=== PATIENT | male | born 1950 | race Hispanic/Latino ===

== ENCOUNTER 2019-09-10 21:48 | Inpatient (IN) | payer BC, OTHER ==
[~2019-09-10] VITALS: Ht 182.9 cm; Wt 125.7 kg
[2019-09-10] MEDS ORDERED: LEVOFLOXACIN 500 MG/D5W 100 ML 0 ML ONE (22:29)
[2019-09-10] MEDS ORDERED: LEVOFLOXACIN 750 MG/D5W 150 ML 150 ML ONE (22:30)
[2019-09-10 22:42] LABS: BASOPHILS % (AUTO) 0.1 % (0.0-5.0); EOSINOPHILS % (AUTO) 0.1 % (0.0-8.0); HEMATOCRIT 46.1 % (42-54); LYMPHOCYTES % (AUTO) 19.4 % (21.0-51.0); MEAN CORPUSCULAR HEMOGLOBIN 28.8 pg (27.0-33.0); MEAN CORPUSCULAR HGB CONC 34.1 g/dL (32.0-36.0); MEAN CORPUSCULAR VOLUME 84.6 fL (79-99); MONOCYTES % (AUTO) 7.3 % (3.0-13.0); NEUTROPHILS % (AUTO) 72.8 % (40.0-77.0); PLATELET COUNT (AUTO) 192 K/uL (130-400); RED BLOOD CELL COUNT(AUTO) 5.45 MIL/uL (4.50-6.20); RED CELL DISTRIBUTION WIDTH 12.9 % (11.0-15.5); WHITE BLOOD COUNT (AUTO) 7.4 K/uL (4.8-10.8)
[2019-09-10 22:50] LABS: POTASSIUM 4.1 mmol/L (3.5-5.1)
[2019-09-10 22:57] LABS: ALBUMIN 3.1 g/dL (3.5-5.0); BILIRUBIN,TOTAL 0.4 mg/dL (0.2-1.0); TOTAL PROTEIN, SERUM 7.5 g/dL (6.0-8.3)
[2019-09-11] MEDS ORDERED: CEFTRIAXONE SODIUM 1 GM ONE (00:34)
[2019-09-11] MEDS ORDERED: AZITHROMYCIN 250 MG TABLET PO ONE ×2 (00:34→00:36)
[2019-09-11 02:55] VITALS: BP 126/63
[2019-09-11] MEDS ORDERED: METF-444 PO (03:16)
[2019-09-11] MEDS ORDERED: PANT40TA54 PO (03:16)
[2019-09-11] MEDS ORDERED: HYDR25TA PO (03:16)
[2019-09-11] MEDS ORDERED: LISI40TA4 PO (03:16)
[2019-09-11] MEDS ORDERED: GLIM1TAB18 PO (03:16)
[2019-09-11] MEDS ORDERED: ATOR40TA69 PO (03:16)
[2019-09-11] MEDS ORDERED: TAMS-1 PO (03:16)
[2019-09-11] MEDS ORDERED: CLON0.1T PO (03:16)
--- NOTE | 2019-09-11 03:19 | NUR ---
ADMIT PT ADMITTED TO ROOM 304, AAOX3. CLAIMS OF COUGH AND SOB. ADMISSION CARE DONE. ADMISSION DATA BASE COMPLETED. PLACED ON O2 AT 2LPM VIA NC. ORIENTED TO ROOM AND UNIT. IN FOR MORE CARE AND MANAGEMENT. Addendum: 09/11/19 at 0359 by CHUY PEREZ RN RN Amended: Links added.
[2019-09-11 03:51] LABS: APPEARANCE,URINE Clear (CLEAR); BILIRUBIN,URINE Negative (NEGATIVE); COLOR,URINE Yellow (YELLOW); GLUCOSE, URINE (UA) Negative (NEGATIVE); KETONES,URINE Negative (NEGATIVE); LEUKOCYTE ESTERASE ,URINE Negative (NEGATIVE); NITRATE,URINE Negative (NEGATIVE); OCCULT BLOOD,URINE Moderate (NEGATIVE); PROTEIN,URINE POS 1+ mg/dL (NEGATIVE)
[2019-09-11 03:59] LABS: BACTERIA,URINE Few /HPF (None Seen); MUCUS,URINE Rare LPF (None Seen); RBC,URINE 0-1 /HPF (0-1); SQUAMOUS EPITHELIAL CELL,UR 0-2 /HPF (0-2)
[2019-09-11] MEDS ORDERED: ACETAMINOPHEN 325 MG TAB PO PRN (04:15)
[2019-09-11] MEDS: SODIUM CHLORIDE 0.9% 1000ML 1,000 ML IV SCH (04:15)
[2019-09-11] MEDS ORDERED: ONDANSETRON HCL 4 MG/2 ML VIAL IVP PRN ×2 (04:15→15:15)
--- NOTE | 2019-09-11 06:26 | NUR ---
ROUNDS PT RESTING WELL, FAIRLY ASLEEP. NO DISTRESS NOTED. NO DISTRESS NOTED. KEPT UNDISTURBED FOR NOW. FOR MORE CARE.
[2019-09-11 07:09] VITALS: BP 118/61
[2019-09-11] MEDS: CLONIDINE HCL 0.1 MG TABLET PO SCH (08:48)
[2019-09-11] MEDS: METFORMIN HCL 500 MG TABLET PO SCH ×2 (08:48→17:02)
[2019-09-11] MEDS: PANTOPRAZOLE SODIUM 40 MG TABLET.DR PO SCH (08:48)
[2019-09-11] MEDS: TAMSULOSIN HCL 0.4 MG CAP.ER.24H PO SCH (08:48)
[2019-09-11] MEDS: HYDROCHLOROTHIAZIDE 25 MG TABLET PO SCH (08:49)
[2019-09-11] MEDS: GLIMEPIRIDE 2 MG TABLET PO SCH (08:49)
[2019-09-11] MEDS: LISINOPRIL 40 MG TABLET PO SCH (08:49)
[2019-09-11 10:31] VITALS: BP 101/60
--- NOTE | 2019-09-11 13:46 | NUR ---
RD NOTIFICATION Pt admitted with Positive COVID-19 infection. Pt with 75gm CCD in place. No report of GI distress, Pt however with decreased Po intake. Obesity Class II. BG 210. Recommend modify diet order to 60gm CCD Recommend 60mL ProMod QD Recommend Glucerna BID RD to continue to monitor. Please notify as additional nutrition concerns arise. Thank you.
[2019-09-11] MEDS ORDERED: HYDRALAZINE HCL 20 MG/ML VIAL IV PRN (15:15)
[2019-09-11] MEDS ORDERED: LOPERAMIDE HCL 2 MG CAP PO PRN (15:15)
[2019-09-11] MEDS ORDERED: ZOLPIDEM TARTRATE 5 MG TAB PO PRN (15:15)
[2019-09-11 15:35] LABS: CREATININE 1.1 mg/dL (0.5-1.5)
[2019-09-11 15:50] VITALS: BP 105/51
[2019-09-11] MEDS: FUROSEMIDE 10 MG/ML 4ML VIAL IV SCH (17:02)
[2019-09-11 19:00] VITALS: BP 116/69
--- NOTE | 2019-09-11 20:00 | NUR ---
ASSESSMENT NOTE PATIENT AWAKE, ALERT, OX3, NO SOB, NO C/O PAIN AT THIS TIME, COUGHING UP SMALL AMOUNT OF YELLOW PHLEGM, TEACH PATIENT PLAN OF CARE AND EXPECTED OUTCOME, PATIENT VERBALIZES UNDERSTANDING VIA TEACH BACK
[2019-09-11] MEDS: CEFTRIAXONE SODIUM 1 GM IVP SCH (20:50)
[2019-09-11] MEDS: AZITHROMYCIN 250 MG TABLET PO SCH (20:50)
[2019-09-11] MEDS: ATORVASTATIN CALCIUM 40 MG TABLET PO SCH (20:50)
[2019-09-12] VITALS (7 sets, daily range): BP systolic 92–121; BP diastolic 50–71
[2019-09-12] MEDS: SODIUM CHLORIDE 0.9% 1000ML 1,000 ML IV SCH ×2 (00:15→20:17)
[2019-09-12] MEDS: FUROSEMIDE 10 MG/ML 4ML VIAL IV SCH ×3 (03:15→20:23)
[2019-09-12 03:48] LABS: ABG BASE EXCESS 1.2 mmol/L (-2.0-3.0); ABG HCO3 24.5 mmol/L (21.0-28.0); ABG OXYGEN SATURATION 91.4 % (95.0-99.0); ABG PCO2 35 mmHg (35-48)
[2019-09-12 04:44] LABS: BASOPHILS % (AUTO) 0.3 % (0.0-5.0); EOSINOPHILS % (AUTO) 0.2 % (0.0-8.0); LYMPHOCYTES % (AUTO) 23.7 % (21.0-51.0); MEAN CORPUSCULAR HEMOGLOBIN 28.8 pg (27.0-33.0); MEAN CORPUSCULAR HGB CONC 33.6 g/dL (32.0-36.0); MEAN CORPUSCULAR VOLUME 85.7 fL (79-99); MONOCYTES % (AUTO) 9.6 % (3.0-13.0); NEUTROPHILS % (AUTO) 65.4 % (40.0-77.0); PLATELET COUNT (AUTO) 176 K/uL (130-400); RED BLOOD CELL COUNT(AUTO) 5.25 MIL/uL (4.50-6.20); WHITE BLOOD COUNT (AUTO) 6.4 K/uL (4.8-10.8)
[2019-09-12 05:00] LABS: ALBUMIN 2.6 g/dL (3.5-5.0); BILIRUBIN,TOTAL 0.5 mg/dL (0.2-1.0); MAGNESIUM 1.8 mg/dL (1.80-2.40); PHOSPHORUS 3.4 mg/dL (2.5-4.9); POTASSIUM 3.8 mmol/L (3.5-5.1); TOTAL PROTEIN, SERUM 6.8 g/dL (6.0-8.3)
[2019-09-12] MEDS: LISINOPRIL 40 MG TABLET PO SCH (10:38)
[2019-09-12] MEDS: CLONIDINE HCL 0.1 MG TABLET PO SCH (10:39)
[2019-09-12] MEDS: DEXAMETHASONE SOD PHOSPHATE 4 MG/ML 1ML VIAL IVP SCH (10:40)
[2019-09-12] MEDS: TAMSULOSIN HCL 0.4 MG CAP.ER.24H PO SCH (10:41)
[2019-09-12] MEDS: HYDROCHLOROTHIAZIDE 25 MG TABLET PO SCH (10:41)
[2019-09-12] MEDS: GLIMEPIRIDE 2 MG TABLET PO SCH (10:41)
[2019-09-12] MEDS: PANTOPRAZOLE SODIUM 40 MG TABLET.DR PO SCH (10:41)
[2019-09-12] MEDS: METFORMIN HCL 500 MG TABLET PO SCH ×2 (10:44→17:16)
--- NOTE | 2019-09-12 12:33 | NUR ---
DCP CM spoke to pt discussed dc plans. Pt is independent prior to admission, lives at home with spouse and 11 y/o foster child. Denies any equipments/services. Feels safe to go back home, still drives, spouse able to assist with transportation and needs as necessary. DC plan to home once stable. CM to cont to follow up. Addendum: 09/12/19 at 1235 by HIPOLITO DUMONT LVN CM Amended: Links added.
[2019-09-12] MEDS ORDERED: ERGOCALCIFEROL (VITAMIN D2) 50,000 UNIT CAPSULE PO ONE (17:45)
[2019-09-12 18:54] LABS: LACTATE DEHYDROGENASE 390 U/L (81-234)
[2019-09-12] MEDS ORDERED: PHARMACY COMMUNICATION MISC SCH (19:30)
[2019-09-12] MEDS: CEFTRIAXONE SODIUM 1 GM IVP SCH (20:22)
[2019-09-12] MEDS: ATORVASTATIN CALCIUM 40 MG TABLET PO SCH (20:23)
[2019-09-12] MEDS: AZITHROMYCIN 250 MG TABLET PO SCH (20:23)
--- NOTE | 2019-09-12 21:27 | NUR ---
B/P B/P 92/52 PULSE 78, RESP 22 TEMP 97.9 F, SAT 94 % OXYGEN AT 3 L N/C. , CALLED NESSA GARCIA MANAGER MED SURG INFORMED OF LOW B/P AND PATIENT ON SCHEDULE LASIX IV, ORDERS TO DISCONTINUE LASIX IV FOR NOW
--- NOTE | 2019-09-12 22:30 | NUR ---
NURSING OBS B/P 99/54, NO SOB ,NO C/O PAIN, ENCOURAGE PO FLUIDS TOLERATED ,TEACH PATIENT PLAN OF CARE AND EXPECTED OUTCOME, PATIENT VERBALIZES UNDERSTANDING VIA TEACH BACK
[2019-09-13 03:41] LABS: ABG HCO3 26.9 mmol/L (21.0-28.0); ABG OXYGEN SATURATION 92.6 % (95.0-99.0); ABG PCO2 43 mmHg (35-48)
[2019-09-13 03:46] VITALS: BP 106/66
[2019-09-13 05:03] LABS: HEMATOCRIT 46.9 % (42-54); MEAN CORPUSCULAR HEMOGLOBIN 28.2 pg (27.0-33.0); MEAN CORPUSCULAR HGB CONC 32.8 g/dL (32.0-36.0); MEAN CORPUSCULAR VOLUME 85.9 fL (79-99); RED BLOOD CELL COUNT(AUTO) 5.46 MIL/uL (4.50-6.20); RED CELL DISTRIBUTION WIDTH 12.9 % (11.0-15.5); WHITE BLOOD COUNT (AUTO) 7.1 K/uL (4.8-10.8)
[2019-09-13 05:50] LABS: ALBUMIN 2.6 g/dL (3.5-5.0); BILIRUBIN,TOTAL 0.4 mg/dL (0.2-1.0); CREATININE 1.1 mg/dL (0.5-1.5); MAGNESIUM 2.1 mg/dL (1.80-2.40); PHOSPHORUS 3.3 mg/dL (2.5-4.9); POTASSIUM 4.6 mmol/L (3.5-5.1); TOTAL PROTEIN, SERUM 7.2 g/dL (6.0-8.3)
[2019-09-13] MEDS: INSULIN HUMULIN R 100 UNIT/ML 3ML SQ SCH ×4 (06:27→20:38)
[2019-09-13 08:31] VITALS: BP 114/70
[2019-09-13] MEDS: CLONIDINE HCL 0.1 MG TABLET PO SCH (09:00)
[2019-09-13] MEDS: HYDROCHLOROTHIAZIDE 25 MG TABLET PO SCH (09:06)
[2019-09-13] MEDS: ASCORBIC ACID 500 MG TAB PO SCH (09:06)
[2019-09-13] MEDS: METFORMIN HCL 500 MG TABLET PO SCH ×2 (09:06→16:39)
[2019-09-13] MEDS: GLIMEPIRIDE 2 MG TABLET PO SCH (09:07)
[2019-09-13] MEDS: TAMSULOSIN HCL 0.4 MG CAP.ER.24H PO SCH (09:07)
[2019-09-13] MEDS: PANTOPRAZOLE SODIUM 40 MG TABLET.DR PO SCH (09:07)
[2019-09-13] MEDS: LISINOPRIL 40 MG TABLET PO SCH (09:07)
[2019-09-13] MEDS: DEXAMETHASONE SOD PHOSPHATE 4 MG/ML 1ML VIAL IVP SCH (09:08)
[2019-09-13 11:40] VITALS: BP 115/71
[2019-09-13] MEDS ORDERED: [UNRECOGNIZED DRUG - OTHER] MISC SCH (15:45)
[2019-09-13 16:23] VITALS: BP 125/68
[2019-09-13] MEDS ORDERED: REMDESIVIR (EUA) 520 200 MG in SODIUM CHLORIDE 0.9% 250 ML IV SCH (17:00)
[2019-09-13] MEDS ORDERED: COMPOUND IV REFRIGERATED 1 EACH IVSOLN MISC PRN (17:00)
[2019-09-13] MEDS: CEFTRIAXONE SODIUM 1 GM IVP SCH (20:32)
[2019-09-13] MEDS: ATORVASTATIN CALCIUM 40 MG TABLET PO SCH (20:32)
[2019-09-13] MEDS: AZITHROMYCIN 250 MG TABLET PO SCH (20:32)
[2019-09-13 20:36] VITALS: BP 122/75
--- NOTE | 2019-09-13 20:45 | NUR ---
WEAN OXYGEN SATURATION 97 % ON 3 LNC, NO SOB AT THIS TIME, WEAN DOWN TO 2 LN/C, SAT 96 %, CONTINUE TO MONITOR
--- NOTE | 2019-09-13 21:00 | NUR ---
WEAN NO RESPIRATORY DISTRESS, OXYGEN AT 2 L N/C,SATURATION 96 %
[2019-09-13 23:45] VITALS: BP 121/68
[2019-09-14 03:24] LABS: ABG BASE EXCESS 0.2 mmol/L (-2.0-3.0); ABG HCO3 24.5 mmol/L (21.0-28.0); ABG OXYGEN SATURATION 90.6 % (95.0-99.0); ABG PCO2 39 mmHg (35-48)
[2019-09-14 04:00] VITALS: BP 119/64
[2019-09-14] MEDS: PHARMACY COMMUNICATION MISC SCH (04:22)
[2019-09-14 05:33] LABS: BASOPHILS % (AUTO) 0.3 % (0.0-5.0); EOSINOPHILS % (AUTO) 0.3 % (0.0-8.0); LYMPHOCYTES % (AUTO) 17.6 % (21.0-51.0); MEAN CORPUSCULAR HEMOGLOBIN 28.8 pg (27.0-33.0); MEAN CORPUSCULAR HGB CONC 33.2 g/dL (32.0-36.0); MEAN CORPUSCULAR VOLUME 86.9 fL (79-99); MONOCYTES % (AUTO) 8.3 % (3.0-13.0); NEUTROPHILS % (AUTO) 71.7 % (40.0-77.0); PLATELET COUNT (AUTO) 242 K/uL (130-400); RED BLOOD CELL COUNT(AUTO) 5.41 MIL/uL (4.50-6.20); RED CELL DISTRIBUTION WIDTH 12.9 % (11.0-15.5); WHITE BLOOD COUNT (AUTO) 10.2 K/uL (4.8-10.8)
[2019-09-14 05:50] LABS: ALANINE AMINOTRANSFERASE 140 U/L (12-78); ALBUMIN 2.6 g/dL (3.5-5.0); ASPARTATE AMINOTRANSFERASE 88 U/L (10-37); BILIRUBIN,DIRECT 0.1 mg/dL (0.0-0.3); BILIRUBIN,TOTAL 0.3 mg/dL (0.2-1.0); CARBON DIOXIDE 31 mmol/L (21-32); CHLORIDE 99 mmol/L (101-111); GLOMERULAR FILTR. RATE CALC 79 mL/min (>60); GLUCOSE,RANDOM 150 mg/dL (70-105); PHOSPHORUS 3.3 mg/dL (2.5-4.9); POTASSIUM 4.3 mmol/L (3.5-5.1); SODIUM SERUM 138 mmol/L (136-145); TOTAL PROTEIN, SERUM 7.1 g/dL (6.0-8.3); UREA NITROGEN, BLOOD 28 mg/dL (7-18)
[2019-09-14] MEDS: INSULIN HUMULIN R 100 UNIT/ML 3ML SQ SCH ×4 (06:09→20:47)
[2019-09-14 08:00] VITALS: BP 126/73
[2019-09-14] MEDS: METFORMIN HCL 500 MG TABLET PO SCH ×2 (08:03→16:36)
[2019-09-14] MEDS: CLONIDINE HCL 0.1 MG TABLET PO SCH (08:04)
[2019-09-14] MEDS: PANTOPRAZOLE SODIUM 40 MG TABLET.DR PO SCH (08:04)
[2019-09-14] MEDS: ASCORBIC ACID 500 MG TAB PO SCH (08:04)
[2019-09-14] MEDS: LISINOPRIL 40 MG TABLET PO SCH (08:04)
[2019-09-14] MEDS: TAMSULOSIN HCL 0.4 MG CAP.ER.24H PO SCH (08:04)
[2019-09-14] MEDS: DEXAMETHASONE SOD PHOSPHATE 4 MG/ML 1ML VIAL IVP SCH (08:04)
[2019-09-14] MEDS: GLIMEPIRIDE 2 MG TABLET PO SCH (08:05)
[2019-09-14] MEDS: HYDROCHLOROTHIAZIDE 25 MG TABLET PO SCH (08:05)
--- NOTE | 2019-09-14 10:41 | NUR ---
RESTING CALMLY IN BED WITH NO C/O OF RESP DIFFICULTY ON 2LNC, DENIES PAIN OR DISCOMFORT. A/OX4
[2019-09-14 11:00] VITALS: BP 106/63
--- NOTE | 2019-09-14 11:38 | NUR ---
NO NEW CHANGES IN PT STATUS, REMAINS CALM, RESTFUL WITH NO S/S OF RESP DIFFICULTY ON 2LNC, NO C/O OR S/S OF PAIN.
[2019-09-14] MEDS: SODIUM CHLORIDE 0.9% 1000ML 1,000 ML IV SCH (12:15)
--- NOTE | 2019-09-14 12:57 | NUR ---
PT SITTING UP IN A CHAIR ON ROOM AIR. DENIES PAIN OR RESP DIFFICULTY AT THIS TIME
--- NOTE | 2019-09-14 13:59 | NUR ---
AT REST WITH NO S/S OR C/O PAIN OR RESP DIFFICULTY AT THIS TIME.
--- NOTE | 2019-09-14 14:52 | NUR ---
resting in bed with no complaints of pain or resp difficulty, taking a shower
[2019-09-14 16:00] VITALS: BP 121/70
[2019-09-14] MEDS: REMDESIVIR (EUA) 520 100 MG in SODIUM CHLORIDE 0.9% 250 ML IV SCH (16:41)
--- NOTE | 2019-09-14 17:24 | NUR ---
AT REST IN BED WITH NO CURRENT C/O PAIN OR RESP DIFFICULTY ON ROOM AIR. IV ABX PATENT.
--- NOTE | 2019-09-14 18:21 | NUR ---
CURRENTLY RESTING IN BED WITH EYES CLOSED, A/OX4, NO C/O PAIN OR RESP DIFFICULTY ON 2L, CALM AND PLEASANT, IV ABX PATENT.
[2019-09-14 19:57] VITALS: BP 119/67
[2019-09-14] MEDS: CEFTRIAXONE SODIUM 1 GM IVP SCH (20:45)
[2019-09-14] MEDS: AZITHROMYCIN 250 MG TABLET PO SCH (20:45)
[2019-09-14] MEDS: ATORVASTATIN CALCIUM 40 MG TABLET PO SCH (20:45)
[2019-09-14 23:23] VITALS: BP 126/70
[2019-09-15 03:44] VITALS: BP 127/65
--- NOTE | 2019-09-15 06:09 | NUR ---
Two units of FFP completed, with no adverse transfusion reaction observed. Patient is in stable condition. He continued on 2Ltr NC with pox between 91-96%. Pox drops to 80% without oxygen. Pt encouraged to keep o2 on. Will continue to monitor.
[2019-09-15 06:25] LABS: BASOPHILS % (AUTO) 0.3 % (0.0-5.0); EOSINOPHILS % (AUTO) 0.2 % (0.0-8.0); LYMPHOCYTES % (AUTO) 22.6 % (21.0-51.0); MEAN CORPUSCULAR HEMOGLOBIN 28.7 pg (27.0-33.0); MEAN CORPUSCULAR HGB CONC 32.8 g/dL (32.0-36.0); MEAN CORPUSCULAR VOLUME 87.7 fL (79-99); NEUTROPHILS % (AUTO) 65.9 % (40.0-77.0); PLATELET COUNT (AUTO) 245 K/uL (130-400); RED BLOOD CELL COUNT(AUTO) 5.36 MIL/uL (4.50-6.20); RED CELL DISTRIBUTION WIDTH 12.8 % (11.0-15.5); WHITE BLOOD COUNT (AUTO) 9.2 K/uL (4.8-10.8)
[2019-09-15 06:48] LABS: ALBUMIN 2.8 g/dL (3.5-5.0); BILIRUBIN,DIRECT 0.1 mg/dL (0.0-0.3); BILIRUBIN,TOTAL 0.4 mg/dL (0.2-1.0); POTASSIUM 4.6 mmol/L (3.5-5.1); TOTAL PROTEIN, SERUM 7.3 g/dL (6.0-8.3)
[2019-09-15] MEDS: INSULIN HUMULIN R 100 UNIT/ML 3ML SQ SCH ×3 (07:30→20:33)
[2019-09-15] MEDS: SODIUM CHLORIDE 0.9% 1000ML 1,000 ML IV SCH (08:15)
[2019-09-15 09:06] VITALS: BP 117/66
[2019-09-15] MEDS: LISINOPRIL 40 MG TABLET PO SCH (09:41)
[2019-09-15] MEDS: GLIMEPIRIDE 2 MG TABLET PO SCH (09:41)
[2019-09-15] MEDS: PANTOPRAZOLE SODIUM 40 MG TABLET.DR PO SCH (09:41)
[2019-09-15] MEDS: HYDROCHLOROTHIAZIDE 25 MG TABLET PO SCH (09:41)
[2019-09-15] MEDS: TAMSULOSIN HCL 0.4 MG CAP.ER.24H PO SCH (09:41)
[2019-09-15] MEDS: ASCORBIC ACID 500 MG TAB PO SCH (09:42)
[2019-09-15] MEDS: DEXAMETHASONE SOD PHOSPHATE 4 MG/ML 1ML VIAL IVP SCH (09:42)
[2019-09-15] MEDS: CLONIDINE HCL 0.1 MG TABLET PO SCH (09:43)
[2019-09-15] MEDS: METFORMIN HCL 500 MG TABLET PO SCH ×2 (09:50→17:40)
[2019-09-15 11:52] VITALS: BP 124/68
[2019-09-15] MEDS ORDERED: MAGNESIUM CITRATE 296 ML SOLUTION PO SCH (15:15)
[2019-09-15 16:58] VITALS: BP 117/68
[2019-09-15] MEDS: REMDESIVIR (EUA) 520 100 MG in SODIUM CHLORIDE 0.9% 250 ML IV SCH (17:40)
[2019-09-15 19:00] VITALS: BP 124/79
[2019-09-15] MEDS: ATORVASTATIN CALCIUM 40 MG TABLET PO SCH (20:31)
[2019-09-15] MEDS: CEFTRIAXONE SODIUM 1 GM IVP SCH (20:31)
[2019-09-15] MEDS: AZITHROMYCIN 250 MG TABLET PO SCH (20:31)
[2019-09-16] VITALS: BP 123/78
[2019-09-16 03:50] LABS: ABG OXYGEN SATURATION 90.6 % (95.0-99.0); ABG PCO2 39 mmHg (35-48)
[2019-09-16 04:00] VITALS: BP 114/63
[2019-09-16 04:02] LABS: BASOPHILS % (AUTO) 0.5 % (0.0-5.0); EOSINOPHILS % (AUTO) 0.3 % (0.0-8.0); HEMATOCRIT 47.7 % (42-54); LYMPHOCYTES % (AUTO) 16.2 % (21.0-51.0); MEAN CORPUSCULAR HEMOGLOBIN 28.5 pg (27.0-33.0); MEAN CORPUSCULAR HGB CONC 33.3 g/dL (32.0-36.0); MEAN CORPUSCULAR VOLUME 85.6 fL (79-99); NEUTROPHILS % (AUTO) 73.2 % (40.0-77.0); PLATELET COUNT (AUTO) 289 K/uL (130-400); RED BLOOD CELL COUNT(AUTO) 5.57 MIL/uL (4.50-6.20); RED CELL DISTRIBUTION WIDTH 12.7 % (11.0-15.5); WHITE BLOOD COUNT (AUTO) 12.5 K/uL (4.8-10.8)
[2019-09-16 04:12] LABS: ALBUMIN 2.8 g/dL (3.5-5.0); BILIRUBIN,TOTAL 0.4 mg/dL (0.2-1.0); CREATININE 0.9 mg/dL (0.5-1.5); MAGNESIUM 1.9 mg/dL (1.80-2.40); PHOSPHORUS 4.1 mg/dL (2.5-4.9); POTASSIUM 4.1 mmol/L (3.5-5.1); TOTAL PROTEIN, SERUM 7.2 g/dL (6.0-8.3)
[2019-09-16] MEDS: SODIUM CHLORIDE 0.9% 1000ML 1,000 ML IV SCH (04:15)
[2019-09-16] MEDS: INSULIN HUMULIN R 100 UNIT/ML 3ML SQ SCH ×4 (07:30→23:24)
[2019-09-16 07:50] VITALS: BP 109/66
[2019-09-16] MEDS: TAMSULOSIN HCL 0.4 MG CAP.ER.24H PO SCH (10:34)
[2019-09-16] MEDS: HYDROCHLOROTHIAZIDE 25 MG TABLET PO SCH (10:34)
[2019-09-16] MEDS: DEXAMETHASONE SOD PHOSPHATE 4 MG/ML 1ML VIAL IVP SCH (10:34)
[2019-09-16] MEDS: METFORMIN HCL 500 MG TABLET PO SCH ×2 (10:35→17:46)
[2019-09-16] MEDS: GLIMEPIRIDE 2 MG TABLET PO SCH (10:35)
[2019-09-16] MEDS: LISINOPRIL 40 MG TABLET PO SCH (10:35)
[2019-09-16] MEDS: PANTOPRAZOLE SODIUM 40 MG TABLET.DR PO SCH (10:36)
[2019-09-16] MEDS: CLONIDINE HCL 0.1 MG TABLET PO SCH (10:36)
[2019-09-16 11:16] VITALS: BP 102/63
[2019-09-16] MEDS: ASCORBIC ACID 500 MG TAB PO SCH (15:27)
[2019-09-16 16:00] VITALS: BP 102/37
[2019-09-16] MEDS: REMDESIVIR (EUA) 520 100 MG in SODIUM CHLORIDE 0.9% 250 ML IV SCH (17:45)
[2019-09-16] MEDS: ATORVASTATIN CALCIUM 40 MG TABLET PO SCH (20:20)
[2019-09-16 20:47] VITALS: BP 114/69
[2019-09-17] VITALS (7 sets, daily range): BP systolic 97–132; BP diastolic 55–77
[2019-09-17] MEDS: PHARMACY COMMUNICATION MISC SCH ×2 (06:00→19:35)
[2019-09-17] MEDS: INSULIN HUMULIN R 100 UNIT/ML 3ML SQ SCH ×4 (06:05→21:29)
[2019-09-17 06:33] LABS: HEMATOCRIT 49.3 % (42-54); MEAN CORPUSCULAR HEMOGLOBIN 28.6 pg (27.0-33.0); MEAN CORPUSCULAR HGB CONC 32.7 g/dL (32.0-36.0); MEAN CORPUSCULAR VOLUME 87.6 fL (79-99); RED BLOOD CELL COUNT(AUTO) 5.63 MIL/uL (4.50-6.20); RED CELL DISTRIBUTION WIDTH 12.8 % (11.0-15.5); WHITE BLOOD COUNT (AUTO) 13.9 K/uL (4.8-10.8)
[2019-09-17 06:52] LABS: ALBUMIN 2.9 g/dL (3.5-5.0); BILIRUBIN,TOTAL 0.7 mg/dL (0.2-1.0); CREATININE 0.9 mg/dL (0.5-1.5); POTASSIUM 4.6 mmol/L (3.5-5.1); TOTAL PROTEIN, SERUM 7.8 g/dL (6.0-8.3)
[2019-09-17] MEDS: SODIUM CHLORIDE 0.9% 1000ML 1,000 ML IV SCH ×2 (08:00→20:19)
[2019-09-17] MEDS: ENOXAPARIN SODIUM 40 MG/0.4 ML SYRINGE SQ SCH (09:00)
[2019-09-17] MEDS: TAMSULOSIN HCL 0.4 MG CAP.ER.24H PO SCH (09:01)
[2019-09-17] MEDS: GLIMEPIRIDE 2 MG TABLET PO SCH (09:01)
[2019-09-17] MEDS: PANTOPRAZOLE SODIUM 40 MG TABLET.DR PO SCH (09:02)
[2019-09-17] MEDS: DEXAMETHASONE SOD PHOSPHATE 4 MG/ML 1ML VIAL IVP SCH (09:02)
[2019-09-17] MEDS: METFORMIN HCL 500 MG TABLET PO SCH ×2 (09:02→16:26)
[2019-09-17] MEDS: ASCORBIC ACID 500 MG TAB PO SCH (09:02)
[2019-09-17] MEDS: CLONIDINE HCL 0.1 MG TABLET PO SCH (09:10)
[2019-09-17] MEDS: LISINOPRIL 40 MG TABLET PO SCH (09:10)
[2019-09-17] MEDS: HYDROCHLOROTHIAZIDE 25 MG TABLET PO SCH (12:01)
[2019-09-17] MEDS: REMDESIVIR (EUA) 520 100 MG in SODIUM CHLORIDE 0.9% 250 ML IV SCH (16:24)
[2019-09-17] MEDS: ATORVASTATIN CALCIUM 40 MG TABLET PO SCH (20:22)
[2019-09-18 04:10] VITALS: BP 119/68
[2019-09-18 04:52] LABS: BASOPHILS % (AUTO) 0.5 % (0.0-5.0); EOSINOPHILS % (AUTO) 0.8 % (0.0-8.0); HEMATOCRIT 47.5 % (42-54); LYMPHOCYTES % (AUTO) 13.4 % (21.0-51.0); MEAN CORPUSCULAR HEMOGLOBIN 28.6 pg (27.0-33.0); MEAN CORPUSCULAR HGB CONC 33.5 g/dL (32.0-36.0); MEAN CORPUSCULAR VOLUME 85.6 fL (79-99); MONOCYTES % (AUTO) 5.7 % (3.0-13.0); NEUTROPHILS % (AUTO) 74.8 % (40.0-77.0); PLATELET COUNT (AUTO) 297 K/uL (130-400); RED BLOOD CELL COUNT(AUTO) 5.55 MIL/uL (4.50-6.20); RED CELL DISTRIBUTION WIDTH 12.4 % (11.0-15.5); WHITE BLOOD COUNT (AUTO) 14.6 K/uL (4.8-10.8)
[2019-09-18 05:27] LABS: ALBUMIN 2.6 g/dL (3.5-5.0); BILIRUBIN,TOTAL 0.5 mg/dL (0.2-1.0); CREATININE 0.9 mg/dL (0.5-1.5); TOTAL PROTEIN, SERUM 6.7 g/dL (6.0-8.3)
[2019-09-18] MEDS: INSULIN HUMULIN R 100 UNIT/ML 3ML SQ SCH ×2 (06:00→12:20)
[2019-09-18 08:00] VITALS: BP 119/75
[2019-09-18] MEDS: METFORMIN HCL 500 MG TABLET PO SCH (08:00)
[2019-09-18] MEDS: GLIMEPIRIDE 2 MG TABLET PO SCH (10:32)
[2019-09-18] MEDS: PANTOPRAZOLE SODIUM 40 MG TABLET.DR PO SCH (10:32)
[2019-09-18] MEDS: ASCORBIC ACID 500 MG TAB PO SCH (10:32)
[2019-09-18] MEDS: HYDROCHLOROTHIAZIDE 25 MG TABLET PO SCH (10:32)
[2019-09-18] MEDS: DEXAMETHASONE SOD PHOSPHATE 4 MG/ML 1ML VIAL IVP SCH (10:32)
[2019-09-18] MEDS: LISINOPRIL 40 MG TABLET PO SCH (10:32)
[2019-09-18] MEDS: TAMSULOSIN HCL 0.4 MG CAP.ER.24H PO SCH (10:32)
[2019-09-18] MEDS: ENOXAPARIN SODIUM 40 MG/0.4 ML SYRINGE SQ SCH (10:33)
[2019-09-18] MEDS: CLONIDINE HCL 0.1 MG TABLET PO SCH (10:35)
[2019-09-18 11:30] VITALS: BP 105/66
[2019-09-18] MEDS ORDERED: APIX2.5T PO (13:37)
[2019-09-18] MEDS ORDERED: DEXA6TAB PO (13:37)
== END 2019-09-18 16:30 | disposition home or self-care (01) | DRG 177 ==
LOC: EDH 21:48 → EDHIP 23:20 → OBSVTOIN 23:20 → 3AH 09-11 02:30 → 4CH 09-16 13:03
PROVIDERS: ADMIT Internal Medicine; ATTEND Internal Medicine
PROC: XW033E5 Introduction of Remdesivir Anti-infective into Peripheral Vein, Percutaneous Approach, New Technology Group 5 (ICD-10-PCS; 2019-09-13)
PROC: XW13325 Transfusion of Convalescent Plasma (Nonautologous) into Peripheral Vein, Percutaneous Approach, New Technology Group 5 (ICD-10-PCS; principal; 2019-09-15)
DX: U07.1 COVID-19 (principal); J12.89 Other viral pneumonia; J96.01 Acute respiratory failure with hypoxia; E78.5 Hyperlipidemia, unspecified; E11.9 Type 2 diabetes mellitus without complications; I10 Essential (primary) hypertension; K21.9 Gastro-esophageal reflux disease without esophagitis; N40.0 Benign prostatic hyperplasia without lower urinary tract symptoms; Z79.01 Long term (current) use of anticoagulants; Z88.0 Allergy status to penicillin; Z79.899 Other long term (current) drug therapy; Z79.84 Long term (current) use of oral hypoglycemic drugs; Z88.5 Allergy status to narcotic agent
CPT/HCPCS: 36415; 36600; 71045; 80048; 80053; 80076; 81001; 82728; 82803; 82948; 83615; 83735; 84100; 84145; 84484; 85025; 85027; 85378; 86140; 86850; 86900; 86901; 86927; 87040; 87426; 94760; 99291; G0378; J0696; J1100; J1650; J1815; J1940; J1956; J7050

== ENCOUNTER 2022-06-08 18:54 | Emergency (ER) | payer OTHER ==
[~2022-06-08] VITALS: Ht 182.9 cm; Wt 130.2 kg
[~2022-06-08 18:54] MED LIST: APIX2.5T PO; ATOR40TA69 PO; CLON0.1T PO; DEXA6TAB PO; GLIM1TAB18 PO; HYDR25TA PO; LISI40TA9 PO; METF-444 PO; PANT40TA54 PO; TAMS-1 PO
[2022-06-08] MEDS ORDERED: IBUPROFEN 600 MG TABLET PO ONE (19:30)
[2022-06-08] MEDS ORDERED: ACETAMINOPHEN 500 MG TABLET PO ONE (19:30)
[2022-06-08] MEDS ORDERED: D-ME118S47 PO (20:08)
[2022-06-08] MEDS ORDERED: IBUP-2070 PO (20:08)
[2022-06-08] MEDS ORDERED: METH4TAB3 PO (20:08)
[2022-06-08 20:19] VITALS: BP 148/74
== END 2022-06-08 20:26 | disposition home or self-care (01) ==
LOC: EDH 18:54
DX: U07.1 COVID-19 (principal); E11.9 Type 2 diabetes mellitus without complications; E78.00 Pure hypercholesterolemia, unspecified; I10 Essential (primary) hypertension; Z79.01 Long term (current) use of anticoagulants; Z79.52 Long term (current) use of systemic steroids; Z79.899 Other long term (current) drug therapy; Z88.0 Allergy status to penicillin; Z88.5 Allergy status to narcotic agent
CPT/HCPCS: 99283; 87635; 87804 ×2; C9803

== ENCOUNTER 2023-01-09 17:38 | Emergency (ER) | payer OTHER ==
[~2023-01-09] VITALS: Ht 182.9 cm; Wt 90.7 kg
[~2023-01-09 17:38] MED LIST changes: +BROM118S48 PO; +IBUP-2070 PO
[2023-01-09 18:10] LABS: BASOPHILS # (AUTO) 0.05 K/uL (0.00-0.20); BASOPHILS % (AUTO) 0.4 % (0.0-5.0); EOSINOPHILS # (AUTO) 0.19 K/uL (0.00-0.70); EOSINOPHILS % (AUTO) 1.6 % (0.0-8.0); HEMATOCRIT 48.1 % (42-54); IMMATURE GRANULOCYTE ABSOLUTE 0.12 K/uL (0-1); LYMPHOCYTES # (AUTO) 2.5 K/uL (1.0-4.8); LYMPHOCYTES % (AUTO) 20.7 % (21.0-51.0); MEAN CORPUSCULAR HEMOGLOBIN 29.9 pg (27.0-33.0); MEAN CORPUSCULAR HGB CONC 33.5 g/dL (32.0-36.0); MEAN CORPUSCULAR VOLUME 89.4 fL (79-99); MONOCYTES # (AUTO) 0.7 K/uL (0.1-1.0); MONOCYTES % (AUTO) 5.5 % (3.0-13.0); NEUTROPHILS # (AUTO) 8.4 K/uL (1.8-7.7); NEUTROPHILS % (AUTO) 70.8 % (40.0-77.0); PLATELET COUNT (AUTO) 210 K/uL (130-400); RED BLOOD CELL COUNT(AUTO) 5.38 MIL/uL (4.50-6.20); RED CELL DISTRIBUTION WIDTH 13.1 % (11.0-15.5); WHITE BLOOD COUNT (AUTO) 11.8 K/uL (4.8-10.8)
[2023-01-09 18:18] LABS: CREATININE 1.1 mg/dL (0.5-1.5); POTASSIUM 3.8 mmol/L (3.5-5.1)
[2023-01-09 18:24] LABS: ALBUMIN 3.6 g/dL (3.5-5.0); BILIRUBIN,TOTAL 0.4 mg/dL (0.2-1.0); TOTAL PROTEIN, SERUM 7.7 g/dL (6.0-8.3)
[2023-01-09 18:25] LABS: ADD UA MICROSCOPIC NO; APPEARANCE,URINE CLEAR (CLEAR); BILIRUBIN,URINE NEGATIVE (NEGATIVE); COLOR,URINE LIGHT-YELLOW (YELLOW); GLUCOSE, URINE (UA) NEGATIVE (NEGATIVE); KETONES,URINE NEGATIVE (NEGATIVE); LEUKOCYTE ESTERASE ,URINE NEGATIVE Leu/uL (NEGATIVE); NITRATE,URINE NEGATIVE (NEGATIVE); OCCULT BLOOD,URINE NEGATIVE (NEGATIVE); PROTEIN,URINE NEGATIVE (NEGATIVE); UROBILINOGEN,URINE 0.2 mg/dL (0.2-1.0)
[2023-01-09 22:07] VITALS: BP 125/86; PULSE 77; RESP 18; O2SAT 98
== END 2023-01-10 02:18 | disposition left against medical advice (07) ==
LOC: EDH 17:38
DX: R55 Syncope and collapse (principal); R07.89 Other chest pain; E11.9 Type 2 diabetes mellitus without complications; E78.00 Pure hypercholesterolemia, unspecified; I10 Essential (primary) hypertension; Z79.01 Long term (current) use of anticoagulants; Z79.52 Long term (current) use of systemic steroids; Z79.899 Other long term (current) drug therapy; Z88.0 Allergy status to penicillin; Z88.5 Allergy status to narcotic agent
CPT/HCPCS: 36415; 71045; 80053; 81003; 84484; 85025; 93005

== ENCOUNTER → 2023-01-11 | Outpatient (CLI) | payer OTHER ==
[~2023-01-11] MED LIST changes: +IOHEXOL-350 75 ML VIAL IV ONE
== END | disposition home or self-care (01) ==
LOC: RAH 09:06
PROVIDERS: ATTEND Family Medicine
DX: N28.1 Cyst of kidney, acquired (principal); R10.12 Left upper quadrant pain; K57.90 Diverticulosis of intestine, part unspecified, without perforation or abscess without bleeding; K76.0 Fatty (change of) liver, not elsewhere classified; I70.90 Unspecified atherosclerosis; M47.815 Spondylosis without myelopathy or radiculopathy, thoracolumbar region; R55 Syncope and collapse; R00.0 Tachycardia, unspecified
CPT/HCPCS: 74178; 84484; 85378; 36415; Q9967

== ENCOUNTER 2023-03-29 16:29 | Emergency (ER) | payer OTHER ==
[~2023-03-29] VITALS: Ht 170.2 cm; Wt 125.2 kg
[~2023-03-29 16:29] MED LIST changes: -IOHEXOL-350 75 ML VIAL IV ONE
[2023-03-29 17:01] VITALS: PULSE 79
[2023-03-29 17:21] LABS: HEMATOCRIT 43.6 % (42-54); MEAN CORPUSCULAR HEMOGLOBIN 29.6 pg (27.0-33.0); MEAN CORPUSCULAR HGB CONC 33.5 g/dL (32.0-36.0); MEAN CORPUSCULAR VOLUME 88.4 fL (79-99); RED BLOOD CELL COUNT(AUTO) 4.93 MIL/uL (4.50-6.20); RED CELL DISTRIBUTION WIDTH 12.9 % (11.0-15.5); WHITE BLOOD COUNT (AUTO) 9.4 K/uL (4.8-10.8)
[2023-03-29 17:36] LABS: CREATININE 0.9 mg/dL (0.5-1.5); INR <= 0.93 (0.85-1.15); MAGNESIUM 1.2 mg/dL (1.80-2.40); POTASSIUM 3.9 mmol/L (3.5-5.1); PROTHROMBIN TIME 10.2 SEC (9.6-11.6)
[2023-03-29 17:37] LABS: PARTIAL THROMBOPLASTIN TIME 27.7 SEC (26.3-35.5)
[2023-03-30] MEDS: MAGNESIUM OXIDE 400 MG TABLET PO ONE (01:07)
[2023-03-30 01:29] VITALS: BP 142/78; RESP 18; O2SAT 99
== END 2023-03-30 01:46 | disposition home or self-care (01) ==
LOC: EDH 16:29
DX: R07.89 Other chest pain (principal); E83.42 Hypomagnesemia; E11.9 Type 2 diabetes mellitus without complications; E78.00 Pure hypercholesterolemia, unspecified; I10 Essential (primary) hypertension; Z79.01 Long term (current) use of anticoagulants; Z79.52 Long term (current) use of systemic steroids; Z79.899 Other long term (current) drug therapy; Z88.0 Allergy status to penicillin; Z88.5 Allergy status to narcotic agent
CPT/HCPCS: 36415; 71045; 80048; 83735; 83880; 84484; 85027; 85610; 85730; 93005

== ENCOUNTER → 2023-05-17 | Outpatient (CLI) | payer OTHER | END | disposition home or self-care (01) | LOC: SHCH 09:50 | PROVIDERS: ATTEND Internal Medicine Cardiovascular Disease | DX: I65.23 Occlusion and stenosis of bilateral carotid arteries (principal); R07.9 Chest pain, unspecified | CPT/HCPCS: 93306; 93880 ==

== ENCOUNTER → 2023-05-25 | Outpatient (CLI) | payer OTHER ==
[2023-05-25] MEDS: REGADENOSON 0.4 MG/5 ML PF SYG IVP ONE (13:53)
== END | disposition home or self-care (01) ==
LOC: SHCH 07:44
PROVIDERS: ATTEND Internal Medicine Cardiovascular Disease
DX: I25.10 Atherosclerotic heart disease of native coronary artery without angina pectoris (principal); R07.9 Chest pain, unspecified
CPT/HCPCS: 78452; 93017; J2785; A9500 ×2; 96374

== ENCOUNTER 2023-07-01 08:19 | Inpatient (IN) | payer OTHER ==
[~2023-07-01] VITALS: Ht 182.9 cm; Wt 124.7 kg
[~2023-07-01 08:19] MED LIST changes: -GLIM1TAB18 PO; +GLIM1TAB56 PO
[2023-07-01] MEDS: ONDANSETRON 4MG INJ IVP ONE (08:29)
[2023-07-01] MEDS: ONDANSETRON 4MG INJ ONE (08:30)
[2023-07-01] MEDS: 0.9%NACL 1000ML 1,000 ML IV SCH ×2 (08:30→16:20)
[2023-07-01 08:46] LABS: BASOPHILS # (AUTO) 0.04 K/uL (0.00-0.20); BASOPHILS % (AUTO) 0.4 % (0.0-5.0); EOSINOPHILS # (AUTO) 0.52 K/uL (0.00-0.70); EOSINOPHILS % (AUTO) 5.3 % (0.0-8.0); HEMATOCRIT 45.1 % (42-54); IMMATURE GRANULOCYTE ABSOLUTE 0.06 K/uL (0-1); LYMPHOCYTES # (AUTO) 2.8 K/uL (1.0-4.8); LYMPHOCYTES % (AUTO) 28.9 % (21.0-51.0); MEAN CORPUSCULAR HGB CONC 33.5 g/dL (32.0-36.0); MEAN CORPUSCULAR VOLUME 89.5 fL (79-99); MONOCYTES # (AUTO) 0.5 K/uL (0.1-1.0); MONOCYTES % (AUTO) 4.8 % (3.0-13.0); NEUTROPHILS # (AUTO) 5.9 K/uL (1.8-7.7); PLATELET COUNT (AUTO) 205 K/uL (130-400); RED BLOOD CELL COUNT(AUTO) 5.04 MIL/uL (4.50-6.20); RED CELL DISTRIBUTION WIDTH 12.5 % (11.0-15.5); WHITE BLOOD COUNT (AUTO) 9.8 K/uL (4.8-10.8)
[2023-07-01 08:55] LABS: CREATININE 0.9 mg/dL (0.5-1.3)
[2023-07-01 09:00] LABS: ALBUMIN 3.4 g/dL (3.5-5.0); BILIRUBIN,TOTAL 0.5 mg/dL (0.2-1.0); TOTAL PROTEIN, SERUM 6.5 g/dL (6.0-8.3)
[2023-07-01] MEDS: LORAZEPAM 2 MG/ML 1 ML VIAL IVP ONE (10:10)
[2023-07-01] MEDS ORDERED: ONDA-243 PO (12:41)
[2023-07-01] MEDS ORDERED: MECL-302 PO (12:41)
[2023-07-01] MEDS: MECLIZINE HCL 25 MG TABLET PO ONE (13:00)
[2023-07-01] MEDS ORDERED: HYDRALAZINE 20MG/ML VIAL IV PRN (13:30)
[2023-07-01] MEDS ORDERED: LABETALOL 20MG SYG IV PRN (13:30)
[2023-07-01] MEDS ORDERED: ACETAMINOPHEN 650 MG SUPPOSITORY RC PRN (13:30)
[2023-07-01] MEDS ORDERED: ALBUTEROL 0.083% 2.5 MG/3 ML INH IH PRN (13:30)
[2023-07-01] MEDS ORDERED: ONDANSETRON 4MG INJ IVP PRN (13:30)
[2023-07-01] MEDS: MECLIZINE HCL 25 MG TABLET ONE (13:37)
[2023-07-01] MEDS: ASPIRIN 81MG CHEW TAB PO ONE (13:40)
[2023-07-01] MEDS ORDERED: IOHEXOL 350 MG/ML 100ML INFUS..BTL IV ONE (15:35)
[2023-07-01] MEDS: CLOPIDOGREL 75MG TAB PO ONE (16:20)
[2023-07-01] MEDS: INSULIN HUMULIN R 100 UNIT/ML 3ML SQ SCH (16:30)
[2023-07-01 16:35] VITALS: BP 151/78; PULSE 55; RESP 19
[2023-07-01 16:50] VITALS: O2SAT 97
[2023-07-01] MEDS ORDERED: TAMS-1 PO (18:54)
[2023-07-01] MEDS ORDERED: MIRT45TA83 PO (18:54)
[2023-07-01] MEDS ORDERED: GABA-534 PO (18:54)
[2023-07-01 20:00] VITALS: BP 135/73; PULSE 70; RESP 20; O2SAT 96
[2023-07-01] MEDS: ATORVASTATIN 40 MG TABLET PO SCH (21:17)
[2023-07-02] VITALS (9 sets, daily range): BP systolic 117–161; BP diastolic 69–85; PULSE 60–70; RESP 17–19; O2SAT 96
[2023-07-02 04:45] LABS: HEMATOCRIT 39.8 % (42-54); MEAN CORPUSCULAR HGB CONC 33.7 g/dL (32.0-36.0); RED BLOOD CELL COUNT(AUTO) 4.47 MIL/uL (4.50-6.20); RED CELL DISTRIBUTION WIDTH 12.6 % (11.0-15.5); WHITE BLOOD COUNT (AUTO) 10.6 K/uL (4.8-10.8)
[2023-07-02 05:30] LABS: CREATININE 0.8 mg/dL (0.5-1.3); MAGNESIUM 1.5 mg/dL (1.80-2.40); PHOSPHORUS 3.5 mg/dL (2.5-4.9); POTASSIUM 3.8 mmol/L (3.5-5.1)
[2023-07-02 05:44] LABS: HEMOGLOBIN A1C 6.9 % (4.0-6.0)
[2023-07-02] MEDS: ENOXAPARIN SODIUM 40 MG/0.4 ML SYRINGE SQ SCH (09:15)
[2023-07-02] MEDS: ASPIRIN 81MG CHEW TAB PO SCH (09:16)
[2023-07-02] MEDS: PANTOPRAZOLE 40 MG TAB DR PO SCH (09:16)
[2023-07-02] MEDS: CLOPIDOGREL 75MG TAB PO SCH (09:16)
[2023-07-02] MEDS: ACETAMINOPHEN 325 MG TAB PO PRN (13:38)
[2023-07-02] MEDS ORDERED: MECLIZINE HCL 25 MG TABLET PO PRN (18:00)
[2023-07-02] MEDS: MAGNESIUM 2GM PREMIX 50ML 50 ML IV PRN (19:15)
[2023-07-02] MEDS: MIRTAZAPINE 15 MG TABLET PO SCH (19:51)
[2023-07-03] VITALS (9 sets, daily range): BP systolic 124–205; BP diastolic 57–112; PULSE 62–87; RESP 17–19; O2SAT 97–98
[2023-07-03 05:42] LABS: BASOPHILS # (AUTO) 0.05 K/uL (0.00-0.20); BASOPHILS % (AUTO) 0.6 % (0.0-5.0); EOSINOPHILS # (AUTO) 0.42 K/uL (0.00-0.70); HEMATOCRIT 40.7 % (42-54); IMMATURE GRANULOCYTE ABSOLUTE 0.04 K/uL (0-1); LYMPHOCYTES # (AUTO) 2.4 K/uL (1.0-4.8); MEAN CORPUSCULAR HEMOGLOBIN 30.1 pg (27.0-33.0); MEAN CORPUSCULAR HGB CONC 33.4 g/dL (32.0-36.0); MONOCYTES # (AUTO) 0.5 K/uL (0.1-1.0); MONOCYTES % (AUTO) 5.8 % (3.0-13.0); NEUTROPHILS # (AUTO) 5.1 K/uL (1.8-7.7); NEUTROPHILS % (AUTO) 60.1 % (40.0-77.0); PLATELET COUNT (AUTO) 196 K/uL (130-400); RED BLOOD CELL COUNT(AUTO) 4.52 MIL/uL (4.50-6.20); RED CELL DISTRIBUTION WIDTH 12.5 % (11.0-15.5); WHITE BLOOD COUNT (AUTO) 8.4 K/uL (4.8-10.8)
[2023-07-03 05:57] LABS: CREATININE 0.8 mg/dL (0.5-1.3); MAGNESIUM 1.6 mg/dL (1.80-2.40); POTASSIUM 3.8 mmol/L (3.5-5.1)
[2023-07-03] MEDS: LACTULOSE 20 GM/30 ML UDCUP PO PRN (06:39)
[2023-07-03] MEDS: GABAPENTIN 100 MG CAPSULE PO SCH (08:42)
[2023-07-03] MEDS: TAMSULOSIN HCL 0.4 MG CAP.ER.24H PO SCH (08:42)
[2023-07-03] MEDS: GABAPENTIN 300 MG CAPSULE PO SCH (08:42)
[2023-07-03] MEDS: CLONIDINE HCL 0.1 MG TABLET PO PRN (15:27)
[2023-07-03] MEDS: BISACODYL 10 MG SUPP.RECT RC PRN (18:22)
[2023-07-04 07:03] VITALS: PULSE 69; RESP 18; O2SAT 96
[2023-07-04 07:04] VITALS: O2SAT 96
[2023-07-04 08:00] VITALS: BP 144/81; PULSE 64; RESP 18
[2023-07-04] MEDS: HYDROCHLOROTHIAZIDE 25 MG TABLET PO SCH (08:45)
[2023-07-04] MEDS: LISINOPRIL 40 MG TABLET PO SCH (08:45)
[2023-07-04 09:48] VITALS: O2SAT 98
[2023-07-04 12:00] VITALS: BP 152/85; PULSE 72; RESP 20
[2023-07-04 16:00] VITALS: BP 150/86; PULSE 64; RESP 18
[2023-07-04] MEDS ORDERED: CLOP-31 PO (16:10)
[2023-07-04] MEDS ORDERED: ATOR40TA69 PO (16:10)
[2023-07-04] MEDS ORDERED: ASPI-1005 PO (16:10)
[2023-07-04] MEDS ORDERED: PANT40TA PO (16:10)
== END 2023-07-04 17:30 | DRG 64 ==
LOC: EDH 08:19 → EDHIP 13:23 → OBSVTOIN 13:23 → 3BH 14:20
PROVIDERS: ADMIT Internal Medicine Pulmonary Disease; ATTEND Internal Medicine Pulmonary Disease
DX: I63.542 Cerebral infarction due to unspecified occlusion or stenosis of left cerebellar artery (principal); I50.33 Acute on chronic diastolic (congestive) heart failure; I16.1 Hypertensive emergency; E11.65 Type 2 diabetes mellitus with hyperglycemia; H81.10 Benign paroxysmal vertigo, unspecified ear; E66.9 Obesity, unspecified; E78.00 Pure hypercholesterolemia, unspecified; I11.0 Hypertensive heart disease with heart failure; I48.91 Unspecified atrial fibrillation; Z96.653 Presence of artificial knee joint, bilateral; Z68.37 Body mass index [BMI] 37.0-37.9, adult; Z79.02 Long term (current) use of antithrombotics/antiplatelets; Z79.82 Long term (current) use of aspirin; Z79.899 Other long term (current) drug therapy; Z82.49 Family history of ischemic heart disease and other diseases of the circulatory system; Z88.0 Allergy status to penicillin; Z88.5 Allergy status to narcotic agent; Z87.442 Personal history of urinary calculi
CPT/HCPCS: 36415; 70450; 70496; 70498; 70551; 71045; 80048; 80053; 80061; 82948; 83036; 83690; 83735; 84100; 84484; 85025; 85027; 92522; 92610; 93005; 93306; 93356; 93880; G0378; J0360; J1650; J2060; J2405; J3475; J7030; Q9967; A4216